=== PATIENT | male | born 1955 | race Caucasian/White ===

== ENCOUNTER 2018-07-12 00:40 | Day surgery (SDC) | payer OTHER ==
[~2018-07-12] VITALS: Ht 177.8 cm; Wt 77.1 kg
[2018-07-12] MEDS ORDERED: NORMOSOL R SOLN(*) 1000 ML BAG 1,000 ML IV PRN (09:00)
[2018-07-12] MEDS ORDERED: LIDOCAINE/SOD BICARB 8.4% SYR ID ONE (09:00)
[2018-07-12 09:24] VITALS: BP 124/85
[2018-07-12] MEDS ORDERED: PROPOFOL EMUL(*) 10MG/ML 20 ML 60 ML ONE (10:41)
[2018-07-12 11:07] VITALS: BP 106/72
[2018-07-12 11:17] VITALS: BP 104/68
[2018-07-12 11:37] VITALS: BP 102/67
[2018-07-12 11:56] VITALS: BP 91/71
[2018-07-12 11:57] VITALS: BP 95/68
== END 2018-07-12 12:05 | disposition home or self-care (01) ==
LOC: OR 00:40
PROVIDERS: ATTEND Family Medicine
DX: Z12.11 Encounter for screening for malignant neoplasm of colon (principal); D12.2 Benign neoplasm of ascending colon; D12.5 Benign neoplasm of sigmoid colon; D12.3 Benign neoplasm of transverse colon
CPT/HCPCS: 00811; 45380; 88305; J2704

== ENCOUNTER → 2018-11-09 | Outpatient (CLI) | payer OTHER ==
--- NOTE | 2018-11-09 14:51 | RADIOLOGY IMAGING REPORT ---
FACILITY: [facility] - [place], [place] PATIENT NAME: Christian Lares : 1955 MR: [id number] V: [id number] EXAM DATE: ORDERING PHYSICIAN: SAMMY BERUMEN TECHNOLOGIST: Location: [facility] - [place] Patient: Christian Lares : 1955 Visit/Account:[id number] Date of Sevice: 11/09/2018 EXAMINATION: Chest radiographs 2 views HISTORY: Prostate cancer. COMPARISON: None. FINDINGS: 2 PA views and a lateral view of the chest are submitted. Lines/tubes: None. Lungs/pleura: No focal consolidation or pleural effusion. Heart: Negative. Mediastinum: Negative. Bony structures/body wall: Mild degenerative changes of the thoracic spine. IMPRESSION: No radiographic evidence of thoracic metastatic disease. Report Dictated By: Mahi Haywood MD at 11/09/2018 2:47 PM Report E-Signed By: Mahi Haywood MD at 11/09/2018 2:48 PM WSN:[email or web address]
[2018-11-09 14:53] LABS: PLATELET COUNT, AUTOMATED 250 K/uL (150-450)
== END ==
LOC: LAB 14:10
PROVIDERS: ATTEND Urology
DX: C61 Malignant neoplasm of prostate (principal)
CPT/HCPCS: 36415; 71046; 82040; 82247; 82248; 82310; 82374; 82435; 82565; 82947; 84075; 84132; 84155; 84295; 84450; 84460; 84520; 85025

== ENCOUNTER → 2018-11-19 | Outpatient (CLI) | payer OTHER ==
[~2018-11-19] MED LIST: IOPAMIDOL 76% 75 ML INFUS BTL 75 ML ONE
--- NOTE | 2018-11-19 08:59 | RADIOLOGY IMAGING REPORT ---
FACILITY: [facility] - [place] PATIENT NAME: Christian Lares : 1955 MR: [id number] V: [id number] EXAM DATE: ORDERING PHYSICIAN: SAMMY BERUMEN TECHNOLOGIST: Location: [facility] [place] Patient: Christian Lares : 1955 Visit/Account:[id number] Date of Sevice: 11/19/2018 CT ABDOMEN PELVIS W & W/O CONTRAST Indication: History of prostate cancer Comparison: None Technique: CT lung bases to the pubic symphysis were obtained without and with IV contrast. 75 cc of Isovue 370 was used. One of the following dose optimization techniques was utilized in the performance of this exam: autom ated exposure control; adjustment of the mA and/or kV according to the patient's size; or use of an i terative reconstruction technique. Specific details can be referenced in the facility's radiology CT exam operational policy. Findings: Liver/gallbladder: There are multiple small cysts in the liver, the largest measures 8 mm. Gallblad juventino is normal. Spleen: Normal. Adrenals: Normal. Pancreas: Normal enhancement without evidence of mass. Kidneys/: There are simple cysts in both kidneys. There is no suspicious right or left renal mass. There is no hydronephrosis. Pelvic : Urinary bladder is normal. Prostate is slightly enlarged, 5.8 cm transverse. There is no a bnormal lymph node in the pelvis. GI: There is no focal abnormality in the small bowel or colon. Vessels/spaces/nodes: There is no evidence of adenopathy in the retroperitoneal or intraperitoneal s pace. There is no adenopathy in the right or left inguinal region. Bones/soft tissues: There are no lytic or blastic bone lesions. Soft tissues are normal. Lung bases: Lung bases are clear. Impression: 1. No evidence of metastasis in the abdomen or pelvis. 2. Simple cysts in the liver, right kidney, and left kidney. Report Dictated By: Sharad Arambula at 11/19/2018 8:48 AM Report E-Signed By: Sharad Arambula at 11/19/2018 8:54 AM WSN:[id number]
--- NOTE | 2018-11-19 14:15 | RADIOLOGY IMAGING REPORT ---
FACILITY: [facility] PATIENT NAME: Christian Lares : 1955 MR: [id number] V: [id number] EXAM DATE: ORDERING PHYSICIAN: SAMMY BERUMEN TECHNOLOGIST: Location: [facility] [place] Patient: Christian Lares : 1955 Visit/Account:[id number] Date of Sevice: 11/19/2018 NM BONE SCAN COMPLETE HISTORY: Prostate cancer TECHNIQUE: 26.4 mCi technetium 99m HDP was injected intravenously. Delayed anterior and posterior wh ole body gamma camera images were obtained. Additional gamma camera images: Right left lateral skull COMPARISON: CT abdomen and pelvis November 19, 2018 FINDINGS: Bone radiotracer activity: There is increased isotope uptake at the left knee which appears to be de generative/postoperative in nature. There are photopenic defects in both knees from bilateral knee a rthroplasties. Extraosseous radiotracer activity: Unremarkable. Renal and urinary collecting system activity: Unremarkable. IMPRESSION: No scintigraphic evidence of osseous metastases Report Dictated By: Nuria Kenyon MD at 11/19/2018 2:10 PM Report E-Signed By: Nuria Kenyon MD at 11/19/2018 2:12 PM HENRRYN:HOMER
== END ==
LOC: CT 04:33
PROVIDERS: ATTEND Urology
DX: C61 Malignant neoplasm of prostate (principal); N28.1 Cyst of kidney, acquired; K76.89 Other specified diseases of liver
CPT/HCPCS: 74178; 78306; A9503; Q9967

== ENCOUNTER 2018-12-04 15:02 | Outpatient (RCR) | payer OTHER ==
--- NOTE | 2018-12-05 03:48 | TOBIN CONSULT ---
EVENT DATE: December 04, 2018 CHIEF COMPLAINT Patient is here for discussion of radiation therapy options for newly diagnosed prostate carcinoma. He does have consultation scheduled in [place] to discuss surgery as well later this week. STAGE T2a NX M0 (CT and bone scan negative). HISTORY This is a pleasant 63-year-old gentleman who is referred to the [facility] by Dr. Benedict to discuss therapeutic options. He has an appointment, I believe, with Dr. Dwyer in [place] tomorrow. The patient had a colonoscopy initially by Dr. Wesley, which revealed a palpable abnormality in the prostate gland with subsequent referral to Dr. Benedict for further assessment. The patient had a relatively low PSA at 2.0 back in November 2016, and his last PSA in May 2018 was also 2.0. I do not believe he has had a recent PSA drawn since that time. The patient was seen by Dr. Benedict and underwent an ultrasound-guided biopsy of the prostate on 11/02/18. The biopsy is notable for a Dema 3+4=7 adenocarcinoma involving 50% of the left apex. The tumor is involving three additional specimens from the left lobe, which were Dema 3+3=6 tumor, occupying 70% to 95% of the core needle specimen. In total, patient has four of 12 positive biopsies. Right lobe revealed mild chronic prostatitis but otherwise unremarkable. Patient underwent baseline radiographic studies including a CT of the abdomen and pelvis, which I reviewed on 11/19/18. Prostate gland was enlarged at 5.8 cm transversely, and fat plane was poorly defined laterally. There was no lymphadenopathy, however, in the pelvis, and visualized bone structures were unremarkable. There do appear to be some benign cysts in the liver, and simple cysts involving both kidneys. A bone scan was obtained on 11/19/18, which was negative for any bony metastasis. He did have some uptake in the left knee, which is degenerative in nature. Patient denies any persistent bone pain or weight loss. Voiding function has been stable, with no interval change. Typically, he does not get up at night. He voids two to three times during the day with good stream. Known family history of prostate carcinoma. PAST MEDICAL HISTORY Prostate carcinoma with history listed above. PAST SURGICAL HISTORY Prostate biopsy, October 2018, with ultrasound guidance. 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 He is seen with his , Lennie, today. Nonsmoker. Social alcohol use. Two children, aged 32 and 35. FAMILY HISTORY Notable for father who had prostate cancer in his 70s. Mother had diabetes in her 70s, heart disease. Mother had stroke around age 75. Both parents lived to their early 80s. REVIEW OF SYSTEMS Notable for left knee pain, otherwise unremarkable. PHYSICAL EXAMINATION GENERAL: A pleasant 63-year-old gentleman of medium build. KPS performance status 100. VITALS: Weight 183, blood pressure 133/83, pulse 86, respirations 16, O2 saturation 93% on room air. HEENT: No peripheral lymphadenopathy. LUNGS: Clear bilaterally. HEART: Heart sounds regular, with occasional ectopy. Otherwise unremarkable. ABDOMEN: Soft. No gross organomegaly. RECTAL: Deferred, as the patient is here predominantly to discuss radiation options and treatment details. He will do the same for surgery tomorrow. IMPRESSION High-volume Dema 6 and Dema 7, moderately to poorly differentiated adenocarcinoma of the prostate, presenting with a palpable nodule involving the left lobe of the prostate with a relatively low PSA of 2.0. The patient's biopsy on 11/02/18 revealed four positive core biopsies, all from the left lobe. No signs of metastatic disease. Relative risk of extracapsular extension was discussed with the patient and spouse, based on statistical nomograms (CJ 55%, LNs 4%, SV invasion 4%). The patient and asked what would be the radiation options if they pursued the treatment course. I would advise them if he chose radiation to do external beam radiotherapy for five weeks, to be followed by prostate brachytherapy. I would also advise him to use ADT for six to eight months. Side effects are generally increased urinary urgency and frequency during the treatment course. Rectal irritation or bother should be on the order of 3% to 7% with modern treatment techniques and CT guidance. Tumor control, at least in a five- to eight-year interval, would be greater than 90%. There would be potential risk of diminished sexual function and certainly lack of sex drive during the ADT portion of the therapy. [place] or stay in town during the week. Unfortunately, the weather is unpredictable in November and December, and he may opt to have Lupron injection and delay treatment until January. The alternative option is surgical removal of the prostate. I told the patient that that treatment is very appropriate as well, and is the only definitive way to establish margins for prostate carcinoma as well as sample the lymph nodes. He will be seeking activities of daily living surgical opinion tomorrow in [place], which I feel is entirely appropriate. If he does have surgery, I reviewed the indications for postoperative radiotherapy from the [employer]TOG and [employer] Societies for positive margins and/or rising PSA following removal of the gland. Patient and spouse asked appropriate questions. We went over the pathology report and imaging set. I believe he is leaning toward surgery at this time. He asked me how long he could defer a decision on treatment, and I advised him that it in his best interests to pursue a treatment decision within the next eight to 12 weeks. I did not review active surveillance with the patient or spouse. I think the volume of tumor on the biopsy and the fact that he has a palpably abnormal gland would favor treatment versus active surveillance/watchful waiting. Patient's tumor, fortunately, has been found before distant tumors spread, and I think he has an excellent chance for a cure at this time. I asked the patient to contact me in the future if he has additional questions or wished to go over therapeutic options at a later juncture. He expressed gratitude for the time to review his case today and the options that were presented. Thank you for the referral. DOTTIE
== END 2018-12-17 08:17 | disposition home or self-care (01) ==
LOC: RAON 15:02
PROVIDERS: ATTEND Radiology Radiation Oncology
DX: C61 Malignant neoplasm of prostate (principal)

== ENCOUNTER → 2019-01-01 | Outpatient (CLI) | payer OTHER ==
--- NOTE | 2019-01-04 19:01 | RT HOLTER TEST ---
FACILITY: [facility] PATIENT NAME: CATHERINE NICOLAS : [id number] MR: [id number] V: [id number] EXAM DATE: ORDERING PHYSICIAN: CHAPARRITA GERARDO TECHNOLOGIST: STAN Flores-augustin date: 2019-01-01 09:04:00 Duration: 47:59:00 Test Indications: IRREGULAR HEART BEAT Medications: [id number] QRS complexes 8585 Ventricular ectopics which represent 3 % of total QRS comp. 23 Supraventricular ectopics which represent <1 % of total QRS comp. * Paced QRS complexes which represent % of total QRS comp. VENTRICULAR ECTOPY 8378 Isolated 28 Bigeminal Cycles 102 Couplets 1 Runs 3 Beats in Runs 3 Beats LONGEST at 110 BPM at 06:57:52 2019-01-03 3 Beats FASTEST at 110 BPM at 06:57:52 2019-01-03 SUPRAVENTRICULAR ECTOPY 18 Isolated 0 Couplets 1 Runs 5 Beats in Runs 5 Beats LONGEST at 204 BPM at 16:52:29 2019-01-01 5 Beats FASTEST at 204 BPM at 16:52:29 2019-01-01 HEART RATES 54 MIN at 04:14:54 2019-01-02 94 AVG 169 MAX at 09:39:26 2019-01-02 LONGEST RR 1.424 secs at 03:11:31 2019-01-03 S-T LEVELS Channel 1 -12.800 mm MIN at 09:04:00 2019-01-01 -12.800 mm MAX at 09:04:00 2019-01-01 Channel 2 -12.800 mm MIN at 09:04:00 2019-01-01 -12.800 mm MAX at 09:04:00 2019-01-01 Channel 3 -12.800 mm MIN at 09:04:00 2019-01-01 -12.800 mm MAX at 09:04:00 2019-01-01 Predominantly sinus rhythm Infrequent SVE with single 5 beat run occurring. Occasional PVC occuring couplets and bigeminy. Otherwise negative halter test. Confirmed by Edmond Benoit ([id number]) on 01/04/2019 7:00:58 PM Referred By: Overread By: Edmond Booth
== END ==
LOC: RESP 12-26 01:57
PROVIDERS: ATTEND Physician Assistant
DX: R00.9 Unspecified abnormalities of heart beat (principal)
CPT/HCPCS: 93225; 93226

== ENCOUNTER → 2019-02-01 | Outpatient (CLI) | payer OTHER ==
[2019-02-01 11:59] LABS: PLATELET COUNT, AUTOMATED 238 K/uL (150-450)
== END ==
LOC: LAB 11:43
PROVIDERS: ATTEND Urology
DX: N39.0 Urinary tract infection, site not specified (principal); R30.0 Dysuria
CPT/HCPCS: 36415; 81001; 82040; 82247; 82310; 82374; 82435; 82565; 82947; 84075; 84132; 84155; 84295; 84450; 84460; 84520; 85025; 87088